=== PATIENT | male | born 1930 | race Caucasian/White ===

== ENCOUNTER 2018-02-13 11:42 | Inpatient (IN) ==
[2018-02-14] MEDS ORDERED: SODIUM CHLORIDE 0.9% 1,000 ML IV SCH (11:00)
[2018-02-17 14:19] LABS: Basophils % 0.6 % (0.0-0.8); Eosinophils # 0.3 10*3/uL (0.0-0.87); Hematocrit 32.9 VOL% (42.0-52.0); Hemoglobin 10.8 GM/DL (14.0-18.0); Immature Granulocytes % 0.2 %; Immature Granulocytes Absolute 0.01 #; Lymphocytes # 0.9 10*3/uL (1.4-4.0); Mean Corpuscular HGB Conc 32.8 GM/DL (32-36); Mean Corpuscular Hemoglobin 31 PG (27-34); Mean Corpuscular Volume 93.2 FL (87-102); Mean Platelet Volume 10.2 FL (9.6-12.0); Monocytes # 0.6 10*3/uL (0.11-0.8); Monocytes % 13.6 % (1.7-12.7); Neutrophils # 2.8 10*3/uL (1.4-7.4); Neutrophils % 59.6 % (38.7-73.9); Platelet Count 174 T/CUMM (130-400); Red Blood Count 3.53 MC/CUMM (3.8-5.5); White Blood Count 4.6 T/CUMM (4-12)
[2018-02-17 14:48] LABS: Albumin 3.7 G/DL (3.4-5.0); Bilirubin,Total 0.5 MG/DL (0.2-1.0); Calcium 8.7 MG/DL (8.5-10.1); Potassium 4.8 MMOL/L (3.5-5.1); Total Protein 7.2 G/DL (6.4-8.3)
[2018-02-17] MEDS: CHLORHEXIDINE 4% SOLN 118 ML BOTTLE TOP SCH ×2 (17:58→20:22)
[2018-02-17] MEDS: CHLORHEXIDINE 0.12% ORAL RINSE 60 ML BOTTLE SWISH/SPIT SCH (20:22)
[2018-02-18] MEDS ORDERED: FAMOTIDINE 20 MG TABLET PO ONE (05:21)
[2018-02-18] MEDS ORDERED: DIAZEPAM 5 MG TABLET PO ONE (05:21)
[2018-02-18] MEDS ORDERED: PAPAVERINE 60 MG/2 ML VIAL ONE (05:22)
[2018-02-18] MEDS ORDERED: TISSUE ADHESIVE 1 EACH APPLICATOR TOP ONE (05:22)
[2018-02-18] MEDS ORDERED: VANCOMYCIN 1,000 MG VIAL ONE (05:23)
[2018-02-18] MEDS ORDERED: CEFUROXIME INJ 1,500 MG in SYRINGE 1 EACH IV ONE (06:00)
[2018-02-18] MEDS ORDERED: CALCIUM CHLORIDE 1,000 MG/10 ML VIAL IV ONE (06:04)
[2018-02-18] MEDS ORDERED: ALBUTEROL/IPRATROPIUM 3 ML NEB RESP TX ONE (06:49)
[2018-02-18] MEDS ORDERED: PHENYLEPHRINE DRIP 0 MG/0 ML PREMIX IV ONE (07:36)
[2018-02-18] MEDS ORDERED: NITROPRUSSIDE 50 MG/2 ML VIAL ONE (07:36)
[2018-02-18] MEDS ORDERED: CALCIUM CHLORIDE 1,000 MG/10 ML SYRINGE IV ONE (07:37)
[2018-02-18] MEDS ORDERED: POTASSIUM CHLORIDE RIDER 100 ML IV ONE (07:37)
[2018-02-18] MEDS ORDERED: EPINEPHrine 1 MG/10 ML SYRINGE ONE (07:38)
[2018-02-18] MEDS ORDERED: ALBUMIN 5% 12.5 GM/250 ML VIAL IV ONE (07:38)
[2018-02-18] MEDS ORDERED: SODIUM BICARBONATE 50 MEQ/50 ML SYRINGE IV ONE ×3 (07:38→14:10)
[2018-02-18 07:55] LABS: ABG Base Excess -4.9 MMOL/L (-2.5-2.5); ABG HCO3 20.4 MMOL/L (20-26); ABG Oxygen Saturation 99.7 % (95-100); ABG PCO2 36.9 MM HG (35-48); ABG PH 7.346 (7.35-7.45); ABG TCO2 18.4 MMOL/L (23-27); Glucose Heart Surgery 91 MG/DL (74-106); Hemoglobin Heart Surgery 10.4 G/DL (14.0-18.0); Ionized Calcium Arterial 1.14 MMOL/L (1.21-1.46); PCO2 Patient Temp Arterial 36.9 MMHG; PH Patient Temp Arterial 7.346; Patient Temperature 37 CELCIUS; Sodium Heart/CVR 139 MMOL/L (135-145)
[2018-02-18] MEDS ORDERED: PHENYLEPHRINE DRIP 20 MG/250 ML PREMIX IV ONE (08:58)
[2018-02-18] MEDS ORDERED: HEPARIN/NACL 0.9% 2 UNITS/ML 500 ML IV ONE (08:58)
[2018-02-18] MEDS ORDERED: MIDAZOLAM 10 MG/2 ML VIAL ONE (08:59)
[2018-02-18] MEDS ORDERED: VECURONIUM 10 MG VIAL IV ONE (08:59)
[2018-02-18] MEDS ORDERED: AMINOCAPROIC ACID 5,000 MG/20 ML VIAL IV ONE (08:59)
[2018-02-18] MEDS ORDERED: ETOMIDATE 40 MG/20 ML VIAL IV ONE (08:59)
[2018-02-18] MEDS ORDERED: NITROGLYCERIN DRIP 50 MG/250 ML BOTTLE IV ONE (08:59)
[2018-02-18] MEDS ORDERED: SODIUM CHLORIDE 0.9% 250 ML IV ONE (08:59)
[2018-02-18] MEDS ORDERED: LACTATED RINGERS 1,000 ML IV ONE (08:59)
[2018-02-18] MEDS ORDERED: SODIUM CHLORIDE 0.9% 1,000 ML IV ONE (08:59)
[2018-02-18] MEDS ORDERED: SODIUM CHLORIDE 0.9% 100 ML IV ONE (08:59)
[2018-02-18 09:08] LABS: Hematocrit Heart Surgery 21.8 PERCENT (42-52); PCO2 Patient Temp Venous 34.5 MM HG; PH Patient Temp Venous 7.411; PO2 Patient Temp Venous 37.5 MM HG; Potassium Heart/CVR 4.9 MMOL/L (3.5-5.1); VBG Base Excess -2.3 MEQ/L (0-4); VBG HCO3 22.3 MEQ/L (24-28); VBG Oxygen Saturation 76.1 %; VBG PCO2 36.2 MMHG (41-51); VBG PH 7.396; VBG PO2 40.2 MMHG (17-40)
[2018-02-18 09:37] LABS: ABG Base Excess -4.4 MMOL/L (-2.5-2.5); ABG HCO3 20.7 MMOL/L (20-26); ABG Oxygen Saturation 99.9 % (95-100); ABG PCO2 40.3 MM HG (35-48); ABG PH 7.328 (7.35-7.45); Glucose Heart Surgery 205 MG/DL (74-106); Hematocrit Heart Surgery 23.2 PERCENT (42-52); Hemoglobin Heart Surgery 7.4 G/DL (14.0-18.0); Ionized Calcium Arterial 1.25 MMOL/L (1.21-1.46); PCO2 Patient Temp Arterial 40.3 MMHG; PH Patient Temp Arterial 7.328; Patient Temperature 37 CELCIUS; Potassium Heart/CVR 4.5 MMOL/L (3.5-5.1); Sodium Heart/CVR 131 MMOL/L (135-145)
[2018-02-18] MEDS ORDERED: DEXTROSE 5% KCL 20 MEQ 40 MEQ/2,000 ML BAG IV ONE (09:40)
[2018-02-18] MEDS ORDERED: HEPARIN 10,000 UNIT/10 ML VIAL ONE (09:40)
[2018-02-18] MEDS ORDERED: methylPREDNISolone SOD SUC 1,000 MG/8 ML VIAL ONE (09:40)
[2018-02-18] MEDS ORDERED: MANNITOL 12.5 GM/50 ML VIAL IV ONE (09:40)
[2018-02-18] MEDS ORDERED: MAGNESIUM SULFATE 10 GM/20 ML VIAL IV ONE (09:40)
[2018-02-18] MEDS ORDERED: ALBUMIN 25% 25 GM/100 ML VIAL IV ONE (09:40)
[2018-02-18] MEDS ORDERED: PROTAMINE SULFATE 250 MG/25 ML VIAL IV ONE (09:40)
[2018-02-18] MEDS ORDERED: PROTAMINE SULFATE 50 MG/5 ML VIAL IV ONE (09:41)
[2018-02-18] MEDS ORDERED: FUROSEMIDE 20 MG/2 ML VIAL ONE (09:41)
[2018-02-18] MEDS ORDERED: CHLORHEXIDINE 4% SOLN 118 ML BOTTLE TOP PRN (10:26)
[2018-02-18] MEDS ORDERED: ACETAMINOPHEN 650 MG SUPP RECTAL PRN (10:26)
[2018-02-18] MEDS ORDERED: SODIUM CHLORIDE 0.9% 250 ML IV PRN (10:26)
[2018-02-18] MEDS ORDERED: CALCIUM CHLORIDE 1,000 MG/10 ML SYRINGE IV PRN (10:26)
[2018-02-18] MEDS ORDERED: MIDAZOLAM 2 MG/2 ML VIAL IV PRN (10:26)
[2018-02-18] MEDS ORDERED: ALBUMIN 5% 12.5 GM in PREMIX 1 EACH IV PRN (10:26)
[2018-02-18] MEDS ORDERED: INSULIN REGULAR 100 UNIT/ML IV PRN (10:26)
[2018-02-18] MEDS ORDERED: ONDANSETRON 4 MG/2 ML VIAL IV PRN (10:26)
[2018-02-18] MEDS ORDERED: DEXTROSE 50% 25 GM/50 ML VIAL IV PRN ×2 (10:26)
[2018-02-18] MEDS ORDERED: SODIUM CHLORIDE 0.45% 1,000 ML IV SCH ×2 (10:30)
[2018-02-18] MEDS ORDERED: METOPROLOL TARTRATE 5 MG/5 ML VIAL IV ONE ×2 (10:33→21:30)
[2018-02-18] MEDS ORDERED: SEVOFLURANE 1 UNIT/15 MINUTE INH ONE (10:33)
[2018-02-18 10:58] LABS: ABG Base Excess -5.1 MMOL/L (-2.5-2.5); ABG HCO3 20.2 MMOL/L (20-26); ABG Oxygen Saturation 95.8 % (95-100); ABG PCO2 49.3 MM HG (35-48); ABG PO2 88.9 MM HG (80-95); ABG TCO2 20.6 MMOL/L (23-27); Glucose Heart Surgery 161 MG/DL (74-106); Hematocrit Heart Surgery 28.7 PERCENT (42-52); Hemoglobin Heart Surgery 9.2 G/DL (14.0-18.0); Potassium Heart/CVR 4.4 MMOL/L (3.5-5.1)
[2018-02-18 11:01] LABS: Basophils % 0.4 % (0.0-0.8); Eosinophils # 0.2 10*3/uL (0.0-0.87); Hematocrit 27.3 VOL% (42.0-52.0); Immature Granulocytes % 0.6 %; Immature Granulocytes Absolute 0.03 #; Lymphocytes # 0.9 10*3/uL (1.4-4.0); Lymphocytes % 18.8 % (21.2-54.2); Mean Corpuscular Hemoglobin 31 PG (27-34); Mean Corpuscular Volume 94.1 FL (87-102); Mean Platelet Volume 10.6 FL (9.6-12.0); Monocytes # 0.3 10*3/uL (0.11-0.8); Monocytes % 5.4 % (1.7-12.7); Neutrophils # 3.6 10*3/uL (1.4-7.4); Neutrophils % 71.8 % (38.7-73.9); Platelet Count 134 T/CUMM (130-400); Red Cell Distribution Width 13.1 % (9.3-17.3)
[2018-02-18] MEDS: CHLORHEXIDINE 4% SOLN 118 ML BOTTLE TOP SCH (11:09)
[2018-02-18] MEDS: CHLORHEXIDINE 0.12% ORAL RINSE 60 ML BOTTLE SWISH/SPIT SCH ×2 (11:09→20:08)
[2018-02-18 11:13] LABS: INR 1.1; PT Patient Result 11.5 SECS; Partial Thromboplastin Time 31.9 SECS (0-40)
[2018-02-18 11:16] LABS: Potassium 4.4 MMOL/L (3.5-5.1)
[2018-02-18 11:21] LABS: Lactic Acid 0.5 MMOL/L (0.4-2.0)
[2018-02-18 12:09] LABS: ABG Base Excess -5.1 MMOL/L (-2.5-2.5); ABG HCO3 21.5 MMOL/L (20-26); ABG Oxygen Saturation 95.2 % (95-100); ABG PCO2 46.1 MM HG (35-48); ABG PH 7.286 (7.35-7.45); ABG PO2 90.2 MM HG (80-95); ABG TCO2 22.9 MMOL/L (23-27); Glucose Heart Surgery 134 MG/DL (74-106); Hemoglobin Heart Surgery 10.6 G/DL (14.0-18.0)
[2018-02-18] MEDS: POTASSIUM CHLORIDE RIDER 20 MEQ in PREMIX 1 EACH IV PRN ×2 (12:17→17:12)
[2018-02-18 12:58] LABS: Apearance,Urine CLEAR (Clear); Bilirubin,Urine Negative (Negative); Blood, Urine Small mg/dL (Negative); Glucose,Urine (UA) Negative (Negative); Ketones,Urine Negative (Negative); Nitrite,Urine Negative (Negative); Protein,Urine Negative; RBC,Urine <1 /HPF (0-4); Urine Color Straw (Yellow); Urine Specific Gravity 1.008 (1.001-1.035); Urine Urobilinogen < 2.0 EU/DL (0.2-1.0); WBC,Urine <1 /HPF (0-6)
[2018-02-18] MEDS ORDERED: ASPIRIN 325 MG TABLET PER TUBE ONE (13:06)
[2018-02-18 14:06] LABS: ABG Base Excess -5.9 MMOL/L (-2.5-2.5); ABG HCO3 19.6 MMOL/L (20-26); ABG Oxygen Saturation 97.5 % (95-100); ABG PCO2 39.3 MM HG (35-48); ABG PH 7.312 (7.35-7.45); ABG PO2 99.4 MM HG (80-95); ABG TCO2 18.3 MMOL/L (23-27)
[2018-02-18] MEDS: SODIUM BICARB INJ 50 MEQ in SODIUM CHLORIDE 0.45% 950 ML IV SCH ×2 (14:46→22:41)
[2018-02-18] MEDS: INSULIN REGULAR 100 UNIT/ML SUBCUT SCH ×3 (16:25→23:37)
[2018-02-18 16:41] LABS: ABG Base Excess -2.9 MMOL/L (-2.5-2.5); ABG HCO3 21.6 MMOL/L (20-26); ABG Oxygen Saturation 97.5 % (95-100); ABG PCO2 36.3 MM HG (35-48); ABG PH 7.392 (7.35-7.45); ABG PO2 107.2 MM HG (80-95); ABG TCO2 22.7 MMOL/L (23-27); Glucose Heart Surgery 179 MG/DL (74-106); Hemoglobin Heart Surgery 10.8 G/DL (14.0-18.0); Potassium Heart/CVR 4.3 MMOL/L (3.5-5.1)
[2018-02-18] MEDS: MORPHINE 4 MG/1 ML VIAL IV PRN ×2 (17:01→21:36)
[2018-02-18] MEDS: MORPHINE 10 MG/1 ML VIAL IV PRN ×2 (17:45→19:37)
[2018-02-18] MEDS: CEFUROXIME INJ 1,500 MG in SYRINGE 1 EACH IV SCH (17:46)
[2018-02-18] MEDS ORDERED: AMIODARONE INJ 150 MG in DEXTROSE 5% 100 ML IV ONE (18:17)
[2018-02-18] MEDS ORDERED: AMIODARONE 150 MG/3 ML VIAL ONE (18:18)
[2018-02-18] MEDS ORDERED: AMIODARONE INJ 450 MG in DEXTROSE 5% 241 ML IV SCH (18:30)
[2018-02-18] MEDS: MAGNESIUM SULF RIDER 2 GM in PREMIX 1 EACH IV PRN (19:36)
[2018-02-18] MEDS ORDERED: CHLORHEXIDINE 0.12% ORAL RINSE 60 ML BOTTLE SWISH/SPIT SCH (21:00)
[2018-02-18] MEDS: diphenhydrAMINE CAP 50 MG CAPSULE PO PRN (21:19)
[2018-02-18] MEDS ORDERED: KETOROLAC 15 MG/1 ML VIAL IV ONE (22:30)
[2018-02-19] MEDS ORDERED: AMIODARONE INJ 450 MG in DEXTROSE 5% 241 ML IV SCH (02:00)
[2018-02-19 04:12] LABS: Basophils % 0.1 % (0.0-0.8); Hematocrit 28.7 VOL% (42.0-52.0); Hemoglobin 9.4 GM/DL (14.0-18.0); Immature Granulocytes % 0.5 %; Immature Granulocytes Absolute 0.07 #; Lymphocytes # 0.5 10*3/uL (1.4-4.0); Lymphocytes % 3.9 % (21.2-54.2); Mean Corpuscular HGB Conc 32.8 GM/DL (32-36); Mean Corpuscular Hemoglobin 30 PG (27-34); Mean Corpuscular Volume 91.4 FL (87-102); Mean Platelet Volume 10.8 FL (9.6-12.0); Monocytes # 0.7 10*3/uL (0.11-0.8); Monocytes % 5.1 % (1.7-12.7); Neutrophils # 12.5 10*3/uL (1.4-7.4); Neutrophils % 90.4 % (38.7-73.9); Platelet Count 137 T/CUMM (130-400); Red Blood Count 3.14 MC/CUMM (3.8-5.5); Red Cell Distribution Width 13.2 % (9.3-17.3); White Blood Count 13.9 T/CUMM (4-12)
[2018-02-19] MEDS: INSULIN REGULAR 100 UNIT/ML SUBCUT SCH ×6 (04:12→20:42)
[2018-02-19 04:26] LABS: Calcium 8.3 MG/DL (8.5-10.1); Osmolality,Calculated 282.8 MOS/KG (273-304); Potassium 4.3 MMOL/L (3.5-5.1)
[2018-02-19 04:42] LABS: Band Neutrophils 1 % (0-10); Hypochromasia 1+; Lymphocytes 2 % (20-55); Microcytosis 1+; Segmented Neutrophils 94 % (50-85); Total Cells Counted 100
[2018-02-19 04:43] LABS: Acanthocytes Few; Ovalocytes Slight; Platelet Estimate Adequate
[2018-02-19] MEDS: MAGNESIUM SULF RIDER 2 GM in PREMIX 1 EACH IV PRN (05:29)
[2018-02-19] MEDS: CEFUROXIME INJ 1,500 MG in SYRINGE 1 EACH IV SCH ×2 (05:30→17:43)
[2018-02-19] MEDS: SODIUM BICARB INJ 50 MEQ in SODIUM CHLORIDE 0.45% 950 ML IV SCH (06:39)
[2018-02-19] MEDS ORDERED: SODIUM CHLORIDE 0.45% 1,000 ML IV SCH (07:30)
[2018-02-19] MEDS: PANTOPRAZOLE 40 MG VIAL IV SCH (08:36)
[2018-02-19] MEDS: ASPIRIN EC 325 MG TABLET PO SCH (08:37)
[2018-02-19] MEDS: CHLORHEXIDINE 0.12% ORAL RINSE 60 ML BOTTLE SWISH/SPIT SCH ×2 (08:37→22:26)
[2018-02-19] MEDS: FUROSEMIDE 40 MG TABLET PO SCH (08:37)
[2018-02-19] MEDS: METOPROLOL TARTRATE 25 MG TABLET PO SCH ×3 (08:37→20:43)
[2018-02-19] MEDS ORDERED: LACTATED RINGERS 500 ML IV ONE (12:23)
[2018-02-19] MEDS: MORPHINE 10 MG/1 ML VIAL IV PRN ×3 (13:45→22:37)
[2018-02-19] MEDS ORDERED: NON-FORMULARY MEDICATION (Esomeprazole Magnesium [Nexium] 20 MG) PO PRN (14:01)
[2018-02-19] MEDS: AMIODARONE 200 MG TABLET PO SCH (20:43)
[2018-02-19] MEDS: ATORVASTATIN 40 MG TABLET PO SCH (20:43)
[2018-02-19] MEDS: diphenhydrAMINE CAP 50 MG CAPSULE PO PRN (22:38)
[2018-02-20 06:06] LABS: Basophils % 0.1 % (0.0-0.8); Hematocrit 30.1 VOL% (42.0-52.0); Hemoglobin 9.8 GM/DL (14.0-18.0); Immature Granulocytes % 0.5 %; Immature Granulocytes Absolute 0.08 #; Lymphocytes # 0.8 10*3/uL (1.4-4.0); Lymphocytes % 4.8 % (21.2-54.2); Mean Corpuscular HGB Conc 32.6 GM/DL (32-36); Mean Corpuscular Hemoglobin 30 PG (27-34); Mean Corpuscular Volume 92.3 FL (87-102); Monocytes # 1.2 10*3/uL (0.11-0.8); Monocytes % 7.3 % (1.7-12.7); Neutrophils # 14.4 10*3/uL (1.4-7.4); Neutrophils % 87.3 % (38.7-73.9); Platelet Count 162 T/CUMM (130-400); Red Blood Count 3.26 MC/CUMM (3.8-5.5); Red Cell Distribution Width 13.5 % (9.3-17.3); White Blood Count 16.5 T/CUMM (4-12)
[2018-02-20 06:31] LABS: Calcium 8.4 MG/DL (8.5-10.1); Potassium 4.2 MMOL/L (3.5-5.1)
[2018-02-20 06:32] LABS: Lymphocytes 6 % (20-55); Platelet Estimate Normal; Segmented Neutrophils 86 % (50-85); Total Cells Counted 100
[2018-02-20 06:33] LABS: Hypochromasia 1+; Microcytosis 1+; Ovalocytes Slight
[2018-02-20] MEDS: FUROSEMIDE 40 MG TABLET PO SCH (08:36)
[2018-02-20] MEDS: FINASTERIDE 5 MG TABLET PO SCH (08:36)
[2018-02-20] MEDS: AMIODARONE 200 MG TABLET PO SCH ×2 (08:37→20:41)
[2018-02-20] MEDS: METOPROLOL TARTRATE 25 MG TABLET PO SCH ×2 (08:37→20:41)
[2018-02-20] MEDS: PANTOPRAZOLE 40 MG VIAL IV SCH (08:37)
[2018-02-20] MEDS: TAMSULOSIN 0.4 MG CAPSULE PO SCH (08:37)
[2018-02-20] MEDS: ASPIRIN EC 325 MG TABLET PO SCH (08:37)
[2018-02-20] MEDS: CETIRIZINE 10 MG TABLET PO SCH (08:37)
[2018-02-20] MEDS: CHLORHEXIDINE 0.12% ORAL RINSE 60 ML BOTTLE SWISH/SPIT SCH ×2 (08:37→20:41)
[2018-02-20] MEDS: INSULIN REGULAR 100 UNIT/ML SUBCUT SCH ×4 (08:47→20:41)
[2018-02-20] MEDS ORDERED: LEVOFLOXACIN 750 MG TABLET PO SCH (10:30)
[2018-02-20] MEDS ORDERED: DOXYCYCLINE HYCLATE 100 MG CAPSULE PO SCH (11:30)
[2018-02-20] MEDS: DOCUSATE SODIUM 100 MG CAPSULE PO SCH ×2 (11:31→20:41)
[2018-02-20] MEDS: BISACODYL 5 MG TABLET PO SCH (11:32)
[2018-02-20] MEDS: DOXYCYCLINE HYCLATE 100 MG CAPSULE PO SCH ×2 (11:32→20:41)
[2018-02-20] MEDS ORDERED: LIDOCAINE 1%/EPI INJ 20 ML VIAL MISC INJ ONE (17:45)
[2018-02-20] MEDS ORDERED: HYDROmorphone 2 MG/1 ML VIAL IV ONE (17:50)
[2018-02-20] MEDS: ATORVASTATIN 40 MG TABLET PO SCH (20:41)
[2018-02-20] MEDS: LOSARTAN 25 MG TABLET PO SCH (20:41)
[2018-02-21 03:32] LABS: Eosinophils % 0.1 % (0.00-10.9); Hematocrit 29.6 VOL% (42.0-52.0); Hemoglobin 9.4 GM/DL (14.0-18.0); Immature Granulocytes % 0.6 %; Immature Granulocytes Absolute 0.07 #; Lymphocytes % 8.2 % (21.2-54.2); Mean Corpuscular HGB Conc 31.8 GM/DL (32-36); Mean Corpuscular Hemoglobin 29 PG (27-34); Mean Corpuscular Volume 92.5 FL (87-102); Mean Platelet Volume 11.3 FL (9.6-12.0); Monocytes # 0.9 10*3/uL (0.11-0.8); Neutrophils # 10.4 10*3/uL (1.4-7.4); Neutrophils % 84.1 % (38.7-73.9); Platelet Count 153 T/CUMM (130-400); Red Cell Distribution Width 13.3 % (9.3-17.3); White Blood Count 12.4 T/CUMM (4-12)
[2018-02-21] MEDS: diphenhydrAMINE CAP 50 MG CAPSULE PO PRN (03:32)
[2018-02-21 03:50] LABS: Calcium 8.2 MG/DL (8.5-10.1); Potassium 3.9 MMOL/L (3.5-5.1)
[2018-02-21] MEDS: HALOPERIDOL 5 MG/ML AMP IM SCH ×2 (04:03→20:26)
[2018-02-21] MEDS: POTASSIUM CHLORIDE RIDER 10 MEQ in PREMIX 1 EACH IV PRN ×4 (04:33→16:05)
[2018-02-21] MEDS ORDERED: FUROSEMIDE 40 MG/4 ML VIAL IV ONE (08:01)
[2018-02-21] MEDS: INSULIN REGULAR 100 UNIT/ML SUBCUT SCH ×4 (08:32→20:34)
[2018-02-21] MEDS: BISACODYL 5 MG TABLET PO SCH (08:33)
[2018-02-21] MEDS: METOPROLOL TARTRATE 25 MG TABLET PO SCH ×2 (08:33→20:26)
[2018-02-21] MEDS: AMIODARONE 200 MG TABLET PO SCH ×2 (08:33→20:26)
[2018-02-21] MEDS: CETIRIZINE 10 MG TABLET PO SCH (08:33)
[2018-02-21] MEDS: TAMSULOSIN 0.4 MG CAPSULE PO SCH (08:33)
[2018-02-21] MEDS: FINASTERIDE 5 MG TABLET PO SCH (08:33)
[2018-02-21] MEDS: DOCUSATE SODIUM 100 MG CAPSULE PO SCH ×2 (08:33→20:26)
[2018-02-21] MEDS: ASPIRIN EC 325 MG TABLET PO SCH (08:33)
[2018-02-21] MEDS: FUROSEMIDE 40 MG TABLET PO SCH (08:35)
[2018-02-21] MEDS: PANTOPRAZOLE 40 MG VIAL IV SCH (08:35)
[2018-02-21] MEDS: DOXYCYCLINE HYCLATE 100 MG CAPSULE PO SCH ×2 (08:42→20:26)
[2018-02-21] MEDS: LOSARTAN 25 MG TABLET PO SCH ×2 (08:43→20:26)
[2018-02-21] MEDS: CHLORHEXIDINE 0.12% ORAL RINSE 60 ML BOTTLE SWISH/SPIT SCH ×2 (09:25→22:03)
[2018-02-21] MEDS ORDERED: SIMETHICONE CHEW 125 MG TABLET PO PRN (10:21)
[2018-02-21] MEDS: MORPHINE 10 MG/1 ML VIAL IV PRN (10:55)
[2018-02-21] MEDS ORDERED: ALBUMIN 5% 25 GM in PREMIX 1 EACH IV ONE (12:30)
[2018-02-21] MEDS: ATORVASTATIN 40 MG TABLET PO SCH (20:26)
[2018-02-21] MEDS ORDERED: METOPROLOL TARTRATE 5 MG/5 ML VIAL IV ONE ×2 (21:44→22:00)
[2018-02-21] MEDS ORDERED: LACTATED RINGERS 500 ML IV ONE (23:19)
[2018-02-22 05:58] LABS: Basophils % 0.1 % (0.0-0.8); Eosinophils # 0.2 10*3/uL (0.0-0.87); Eosinophils % 2.3 % (0.00-10.9); Hematocrit 27.2 VOL% (42.0-52.0); Immature Granulocytes % 0.6 %; Immature Granulocytes Absolute 0.06 #; Mean Corpuscular HGB Conc 33.1 GM/DL (32-36); Mean Corpuscular Hemoglobin 31 PG (27-34); Mean Corpuscular Volume 92.2 FL (87-102); Mean Platelet Volume 11.3 FL (9.6-12.0); Monocytes # 0.6 10*3/uL (0.11-0.8); Monocytes % 5.9 % (1.7-12.7); Neutrophils # 8.4 10*3/uL (1.4-7.4); Neutrophils % 81.1 % (38.7-73.9); Platelet Count 146 T/CUMM (130-400); Red Blood Count 2.95 MC/CUMM (3.8-5.5); Red Cell Distribution Width 12.9 % (9.3-17.3); White Blood Count 10.3 T/CUMM (4-12)
[2018-02-22 06:29] LABS: Calcium 7.8 MG/DL (8.5-10.1); Osmolality,Calculated 281.4 MOS/KG (273-304); Potassium 3.4 MMOL/L (3.5-5.1)
[2018-02-22] MEDS: INSULIN REGULAR 100 UNIT/ML SUBCUT SCH ×4 (08:07→21:10)
[2018-02-22] MEDS: MAGNESIUM SULF RIDER 4 GM in PREMIX 1 EACH IV PRN (08:35)
[2018-02-22] MEDS: PANTOPRAZOLE 40 MG VIAL IV SCH (08:35)
[2018-02-22] MEDS ORDERED: LACTATED RINGERS 500 ML IV ONE ×2 (10:20→11:51)
[2018-02-22] MEDS ORDERED: HYDROmorphone 2 MG/1 ML VIAL IV ONE (10:20)
[2018-02-22] MEDS ORDERED: HYDROmorphone 2 MG/1 ML VIAL ONE (10:23)
[2018-02-22] MEDS ORDERED: LIDOCAINE 1%/EPI INJ 20 ML VIAL ONE (10:34)
[2018-02-22] MEDS: ASPIRIN EC 325 MG TABLET PO SCH (12:34)
[2018-02-22] MEDS: CETIRIZINE 10 MG TABLET PO SCH (12:35)
[2018-02-22] MEDS: BISACODYL 5 MG TABLET PO SCH (12:35)
[2018-02-22] MEDS: TAMSULOSIN 0.4 MG CAPSULE PO SCH (12:35)
[2018-02-22] MEDS: DOCUSATE SODIUM 100 MG CAPSULE PO SCH ×2 (12:35→21:10)
[2018-02-22] MEDS: DOXYCYCLINE HYCLATE 100 MG CAPSULE PO SCH ×2 (12:35→21:10)
[2018-02-22] MEDS: FINASTERIDE 5 MG TABLET PO SCH (12:35)
[2018-02-22] MEDS: FUROSEMIDE 40 MG TABLET PO SCH (12:35)
[2018-02-22] MEDS: AMIODARONE 200 MG TABLET PO SCH ×2 (12:35→21:10)
[2018-02-22] MEDS: METOPROLOL TARTRATE 25 MG TABLET PO SCH ×2 (12:39→21:11)
[2018-02-22] MEDS: CHLORHEXIDINE 0.12% ORAL RINSE 60 ML BOTTLE SWISH/SPIT SCH ×2 (13:18→21:11)
[2018-02-22] MEDS: POTASSIUM CHLORIDE RIDER 20 MEQ in PREMIX 1 EACH IV PRN ×2 (14:00→16:00)
[2018-02-22] MEDS: MORPHINE 10 MG/1 ML VIAL IV PRN (16:52)
[2018-02-22] MEDS: ATORVASTATIN 40 MG TABLET PO SCH (21:10)
[2018-02-22] MEDS: HALOPERIDOL 5 MG/ML AMP IM SCH (21:10)
[2018-02-23 06:13] LABS: Basophils % 0.1 % (0.0-0.8); Eosinophils # 0.4 10*3/uL (0.0-0.87); Eosinophils % 4.4 % (0.00-10.9); Hematocrit 27.6 VOL% (42.0-52.0); Hemoglobin 8.9 GM/DL (14.0-18.0); Immature Granulocytes % 0.3 %; Immature Granulocytes Absolute 0.03 #; Lymphocytes # 0.8 10*3/uL (1.4-4.0); Mean Corpuscular HGB Conc 32.2 GM/DL (32-36); Mean Corpuscular Hemoglobin 29 PG (27-34); Mean Corpuscular Volume 90.5 FL (87-102); Mean Platelet Volume 11.5 FL (9.6-12.0); Monocytes # 0.6 10*3/uL (0.11-0.8); Neutrophils % 81.2 % (38.7-73.9); Platelet Count 151 T/CUMM (130-400); Red Blood Count 3.05 MC/CUMM (3.8-5.5); Red Cell Distribution Width 12.8 % (9.3-17.3); White Blood Count 9.9 T/CUMM (4-12)
[2018-02-23 06:31] LABS: Calcium 7.5 MG/DL (8.5-10.1); Osmolality,Calculated 279.7 MOS/KG (273-304); Potassium 3.6 MMOL/L (3.5-5.1)
[2018-02-23] MEDS: INSULIN REGULAR 100 UNIT/ML SUBCUT SCH ×4 (08:20→22:18)
[2018-02-23] MEDS: DOCUSATE SODIUM 100 MG CAPSULE PO SCH ×2 (08:34→20:56)
[2018-02-23] MEDS: AMIODARONE 200 MG TABLET PO SCH ×2 (08:34→20:56)
[2018-02-23] MEDS: ASPIRIN EC 325 MG TABLET PO SCH (08:34)
[2018-02-23] MEDS: CETIRIZINE 10 MG TABLET PO SCH (08:34)
[2018-02-23] MEDS: FUROSEMIDE 40 MG TABLET PO SCH (08:34)
[2018-02-23] MEDS: BISACODYL 5 MG TABLET PO SCH (08:34)
[2018-02-23] MEDS: FINASTERIDE 5 MG TABLET PO SCH (08:34)
[2018-02-23] MEDS: DOXYCYCLINE HYCLATE 100 MG CAPSULE PO SCH ×2 (08:34→20:56)
[2018-02-23] MEDS: TAMSULOSIN 0.4 MG CAPSULE PO SCH (08:34)
[2018-02-23] MEDS: PANTOPRAZOLE 40 MG VIAL IV SCH (08:34)
[2018-02-23] MEDS: CHLORHEXIDINE 0.12% ORAL RINSE 60 ML BOTTLE SWISH/SPIT SCH ×2 (08:35→20:57)
[2018-02-23] MEDS: METOPROLOL TARTRATE 25 MG TABLET PO SCH ×2 (08:35→20:56)
[2018-02-23] MEDS ORDERED: LACTATED RINGERS 500 ML IV ONE (12:21)
[2018-02-23] MEDS ORDERED: SODIUM PHOSPHATE ENEMA 133 ML BOTTLE RECTAL ONE (12:23)
[2018-02-23] MEDS ORDERED: SODIUM CHLORIDE 0.9% 1,000 ML IV PRN (12:24)
[2018-02-23] MEDS: LACTATED RINGERS 1,000 ML IV SCH (12:48)
[2018-02-23 13:03] LABS: Amorphous Crystals,Urine Occasional /HPF (Few); Apearance,Urine CLOUDY (Clear); Bacteria,Urine Few /HPF (Few); Bilirubin,Urine Negative (Negative); Blood, Urine Large mg/dL (Negative); Glucose,Urine (UA) Negative (Negative); Hyaline Casts,Urine 7 /LPF (0-3); Ketones,Urine Negative (Negative); Nitrite,Urine Negative (Negative); Protein,Urine Negative; RBC,Urine 86 /HPF (0-4); Urine Color Yellow (Yellow); Urine Urobilinogen < 2.0 EU/DL (0.2-1.0); WBC,Urine 4 /HPF (0-6)
[2018-02-23 19:20] LABS: Hematocrit 28.5 VOL% (42.0-52.0); Hemoglobin 9.6 GM/DL (14.0-18.0)
[2018-02-23] MEDS: ATORVASTATIN 40 MG TABLET PO SCH (20:56)
[2018-02-23] MEDS: HALOPERIDOL 5 MG/ML AMP IM SCH (20:57)
[2018-02-24 05:56] LABS: Basophils % 0.2 % (0.0-0.8); Eosinophils # 0.4 10*3/uL (0.0-0.87); Hematocrit 31.3 VOL% (42.0-52.0); Hemoglobin 10.7 GM/DL (14.0-18.0); Immature Granulocytes % 0.6 %; Immature Granulocytes Absolute 0.06 #; Lymphocytes # 0.7 10*3/uL (1.4-4.0); Lymphocytes % 6.7 % (21.2-54.2); Mean Corpuscular HGB Conc 34.2 GM/DL (32-36); Mean Corpuscular Hemoglobin 30 PG (27-34); Mean Corpuscular Volume 87.7 FL (87-102); Mean Platelet Volume 12.3 FL (9.6-12.0); Monocytes # 0.7 10*3/uL (0.11-0.8); Monocytes % 7.1 % (1.7-12.7); Neutrophils # 8.2 10*3/uL (1.4-7.4); Neutrophils % 81.4 % (38.7-73.9); Platelet Count 126 T/CUMM (130-400); Red Blood Count 3.57 MC/CUMM (3.8-5.5); Red Cell Distribution Width 13.4 % (9.3-17.3); White Blood Count 10.1 T/CUMM (4-12)
[2018-02-24] MEDS: METOPROLOL TARTRATE 25 MG TABLET PO SCH ×3 (07:12→20:47)
[2018-02-24] MEDS: INSULIN REGULAR 100 UNIT/ML SUBCUT SCH ×4 (07:25→20:53)
[2018-02-24] MEDS: LACTATED RINGERS 1,000 ML IV SCH (08:33)
[2018-02-24] MEDS: FINASTERIDE 5 MG TABLET PO SCH (08:34)
[2018-02-24] MEDS: AMIODARONE 200 MG TABLET PO SCH ×2 (08:34→20:45)
[2018-02-24] MEDS: ASPIRIN EC 325 MG TABLET PO SCH (08:34)
[2018-02-24] MEDS: DOXYCYCLINE HYCLATE 100 MG CAPSULE PO SCH ×2 (08:34→20:45)
[2018-02-24] MEDS: TAMSULOSIN 0.4 MG CAPSULE PO SCH (08:34)
[2018-02-24] MEDS: BISACODYL 5 MG TABLET PO SCH (08:34)
[2018-02-24] MEDS: DOCUSATE SODIUM 100 MG CAPSULE PO SCH ×2 (08:34→20:51)
[2018-02-24] MEDS: CETIRIZINE 10 MG TABLET PO SCH (08:34)
[2018-02-24] MEDS: PANTOPRAZOLE 40 MG VIAL IV SCH (08:35)
[2018-02-24 08:36] LABS: Calcium 7.5 MG/DL (8.5-10.1); Osmolality,Calculated 284.2 MOS/KG (273-304); Potassium 3.1 MMOL/L (3.5-5.1)
[2018-02-24] MEDS: CHLORHEXIDINE 0.12% ORAL RINSE 60 ML BOTTLE SWISH/SPIT SCH ×2 (08:40→20:47)
[2018-02-24] MEDS: FUROSEMIDE 40 MG TABLET PO SCH (08:42)
[2018-02-24] MEDS: POTASSIUM CHLORIDE RIDER 20 MEQ in PREMIX 1 EACH IV PRN (09:57)
[2018-02-24] MEDS: ATORVASTATIN 40 MG TABLET PO SCH (20:45)
[2018-02-24] MEDS: HALOPERIDOL 5 MG/ML AMP IM SCH (20:45)
[2018-02-25] MEDS: POTASSIUM CHLORIDE RIDER 20 MEQ in PREMIX 1 EACH IV PRN ×2 (01:16→02:48)
[2018-02-25 04:43] LABS: Basophils % 0.1 % (0.0-0.8); Eosinophils # 0.5 10*3/uL (0.0-0.87); Hematocrit 29.8 VOL% (42.0-52.0); Hemoglobin 9.8 GM/DL (14.0-18.0); Immature Granulocytes % 0.6 %; Immature Granulocytes Absolute 0.05 #; Lymphocytes % 11.5 % (21.2-54.2); Mean Corpuscular HGB Conc 32.9 GM/DL (32-36); Mean Corpuscular Hemoglobin 29 PG (27-34); Mean Corpuscular Volume 88.7 FL (87-102); Mean Platelet Volume 11.4 FL (9.6-12.0); Monocytes # 0.7 10*3/uL (0.11-0.8); Monocytes % 8.1 % (1.7-12.7); Neutrophils # 6.2 10*3/uL (1.4-7.4); Neutrophils % 73.7 % (38.7-73.9); Platelet Count 141 T/CUMM (130-400); Red Blood Count 3.36 MC/CUMM (3.8-5.5); Red Cell Distribution Width 13.5 % (9.3-17.3); White Blood Count 8.4 T/CUMM (4-12)
[2018-02-25 05:10] LABS: Calcium 7.4 MG/DL (8.5-10.1); Potassium 3.8 MMOL/L (3.5-5.1)
[2018-02-25] MEDS: INSULIN REGULAR 100 UNIT/ML SUBCUT SCH ×3 (08:39→17:33)
[2018-02-25] MEDS: DOCUSATE SODIUM 100 MG CAPSULE PO SCH ×2 (10:04→21:36)
[2018-02-25] MEDS: ASPIRIN EC 325 MG TABLET PO SCH (10:04)
[2018-02-25] MEDS: AMIODARONE 200 MG TABLET PO SCH ×2 (10:04→21:36)
[2018-02-25] MEDS: TAMSULOSIN 0.4 MG CAPSULE PO SCH (10:05)
[2018-02-25] MEDS: FUROSEMIDE 40 MG TABLET PO SCH (10:05)
[2018-02-25] MEDS: BISACODYL 5 MG TABLET PO SCH (10:05)
[2018-02-25] MEDS: CHLORHEXIDINE 0.12% ORAL RINSE 60 ML BOTTLE SWISH/SPIT SCH ×2 (10:06→21:35)
[2018-02-25] MEDS: METOPROLOL TARTRATE 25 MG TABLET PO SCH ×2 (10:06→21:36)
[2018-02-25] MEDS: FINASTERIDE 5 MG TABLET PO SCH (10:07)
[2018-02-25] MEDS: CETIRIZINE 10 MG TABLET PO SCH (10:08)
[2018-02-25] MEDS: DOXYCYCLINE HYCLATE 100 MG CAPSULE PO SCH ×2 (10:08→21:36)
[2018-02-25] MEDS: PANTOPRAZOLE 40 MG VIAL IV SCH (10:13)
[2018-02-25] MEDS: HALOPERIDOL 5 MG/ML AMP IM SCH (21:36)
[2018-02-25] MEDS: ATORVASTATIN 40 MG TABLET PO SCH (21:37)
[2018-02-26] MEDS: INSULIN REGULAR 100 UNIT/ML SUBCUT SCH ×5 (00:22→21:12)
[2018-02-26] MEDS: diphenhydrAMINE CAP 50 MG CAPSULE PO PRN ×2 (01:36→21:12)
[2018-02-26 04:59] LABS: Basophils % 0.2 % (0.0-0.8); Eosinophils # 0.3 10*3/uL (0.0-0.87); Eosinophils % 3.5 % (0.00-10.9); Hematocrit 31.7 VOL% (42.0-52.0); Hemoglobin 10.4 GM/DL (14.0-18.0); Immature Granulocytes % 0.7 %; Immature Granulocytes Absolute 0.06 #; Lymphocytes % 10.7 % (21.2-54.2); Mean Corpuscular HGB Conc 32.8 GM/DL (32-36); Mean Corpuscular Hemoglobin 30 PG (27-34); Mean Corpuscular Volume 90.3 FL (87-102); Mean Platelet Volume 10.8 FL (9.6-12.0); Monocytes # 0.6 10*3/uL (0.11-0.8); Neutrophils # 7.2 10*3/uL (1.4-7.4); Neutrophils % 77.9 % (38.7-73.9); Platelet Count 241 T/CUMM (130-400); Red Blood Count 3.51 MC/CUMM (3.8-5.5); Red Cell Distribution Width 13.5 % (9.3-17.3); White Blood Count 9.2 T/CUMM (4-12)
[2018-02-26 05:27] LABS: Calcium 7.9 MG/DL (8.5-10.1); Osmolality,Calculated 286.8 MOS/KG (273-304); Potassium 3.6 MMOL/L (3.5-5.1)
[2018-02-26] MEDS: FUROSEMIDE 40 MG TABLET PO SCH (08:46)
[2018-02-26] MEDS: TAMSULOSIN 0.4 MG CAPSULE PO SCH (08:47)
[2018-02-26] MEDS: FINASTERIDE 5 MG TABLET PO SCH (08:47)
[2018-02-26] MEDS: METOPROLOL TARTRATE 25 MG TABLET PO SCH ×2 (08:47→21:12)
[2018-02-26] MEDS: DOCUSATE SODIUM 100 MG CAPSULE PO SCH ×2 (08:47→21:12)
[2018-02-26] MEDS: BISACODYL 5 MG TABLET PO SCH (08:47)
[2018-02-26] MEDS: CETIRIZINE 10 MG TABLET PO SCH (08:47)
[2018-02-26] MEDS: MAGNESIUM SULF RIDER 4 GM in PREMIX 1 EACH IV PRN (08:48)
[2018-02-26] MEDS: AMIODARONE 200 MG TABLET PO SCH ×2 (08:48→21:12)
[2018-02-26] MEDS: ASPIRIN EC 325 MG TABLET PO SCH (08:48)
[2018-02-26] MEDS: PANTOPRAZOLE 40 MG VIAL IV SCH (08:48)
[2018-02-26] MEDS: DOXYCYCLINE HYCLATE 100 MG CAPSULE PO SCH ×2 (08:50→21:12)
[2018-02-26] MEDS: CHLORHEXIDINE 0.12% ORAL RINSE 60 ML BOTTLE SWISH/SPIT SCH ×2 (08:51→21:13)
[2018-02-26] MEDS: ATORVASTATIN 40 MG TABLET PO SCH (21:12)
[2018-02-26] MEDS: HALOPERIDOL 5 MG/ML AMP IM SCH (21:13)
[2018-02-27] MEDS: BISACODYL 5 MG TABLET PO SCH (10:05)
[2018-02-27] MEDS: DOCUSATE SODIUM 100 MG CAPSULE PO SCH ×2 (10:05→21:03)
[2018-02-27] MEDS: FINASTERIDE 5 MG TABLET PO SCH (10:05)
[2018-02-27] MEDS: CETIRIZINE 10 MG TABLET PO SCH (10:05)
[2018-02-27] MEDS: ASPIRIN EC 325 MG TABLET PO SCH (10:05)
[2018-02-27] MEDS: DOXYCYCLINE HYCLATE 100 MG CAPSULE PO SCH ×2 (10:05→20:59)
[2018-02-27] MEDS: FUROSEMIDE 40 MG TABLET PO SCH (10:06)
[2018-02-27] MEDS: INSULIN REGULAR 100 UNIT/ML SUBCUT SCH ×3 (10:06→16:41)
[2018-02-27] MEDS: PANTOPRAZOLE 40 MG VIAL IV SCH (10:06)
[2018-02-27] MEDS: METOPROLOL TARTRATE 25 MG TABLET PO SCH ×2 (10:06→21:03)
[2018-02-27] MEDS: AMIODARONE 200 MG TABLET PO SCH ×2 (10:06→21:00)
[2018-02-27] MEDS: TAMSULOSIN 0.4 MG CAPSULE PO SCH (10:06)
[2018-02-27] MEDS: CHLORHEXIDINE 0.12% ORAL RINSE 60 ML BOTTLE SWISH/SPIT SCH ×2 (10:06→21:02)
[2018-02-27] MEDS: HALOPERIDOL 5 MG/ML AMP IM SCH (20:59)
[2018-02-27] MEDS: ATORVASTATIN 40 MG TABLET PO SCH (21:00)
[2018-02-28] MEDS: CETIRIZINE 10 MG TABLET PO SCH (09:14)
[2018-02-28] MEDS: FINASTERIDE 5 MG TABLET PO SCH (09:14)
[2018-02-28] MEDS: FUROSEMIDE 40 MG TABLET PO SCH (09:14)
[2018-02-28] MEDS: AMIODARONE 200 MG TABLET PO SCH ×2 (09:14→21:33)
[2018-02-28] MEDS: DOCUSATE SODIUM 100 MG CAPSULE PO SCH ×2 (09:14→21:33)
[2018-02-28] MEDS: BISACODYL 5 MG TABLET PO SCH (09:14)
[2018-02-28] MEDS: ASPIRIN EC 325 MG TABLET PO SCH (09:15)
[2018-02-28] MEDS: METOPROLOL TARTRATE 25 MG TABLET PO SCH ×2 (09:15→21:33)
[2018-02-28] MEDS: TAMSULOSIN 0.4 MG CAPSULE PO SCH (09:15)
[2018-02-28] MEDS: DOXYCYCLINE HYCLATE 100 MG CAPSULE PO SCH ×2 (09:17→21:33)
[2018-02-28] MEDS: PANTOPRAZOLE 40 MG VIAL IV SCH (09:23)
[2018-02-28] MEDS: CHLORHEXIDINE 0.12% ORAL RINSE 60 ML BOTTLE SWISH/SPIT SCH ×2 (09:23→21:33)
[2018-02-28] MEDS: ATORVASTATIN 40 MG TABLET PO SCH (21:33)
[2018-02-28] MEDS: HALOPERIDOL 5 MG/ML AMP IM SCH (21:33)
[2018-03-01 02:37] LABS: Basophils % 0.3 % (0.0-0.8); Eosinophils # 0.4 10*3/uL (0.0-0.87); Eosinophils % 4.1 % (0.00-10.9); Hematocrit 29.8 VOL% (42.0-52.0); Hemoglobin 9.5 GM/DL (14.0-18.0); Immature Granulocytes % 0.5 %; Immature Granulocytes Absolute 0.05 #; Lymphocytes # 1.3 10*3/uL (1.4-4.0); Lymphocytes % 11.6 % (21.2-54.2); Mean Corpuscular HGB Conc 31.9 GM/DL (32-36); Mean Corpuscular Hemoglobin 29 PG (27-34); Mean Platelet Volume 10.5 FL (9.6-12.0); Monocytes # 0.9 10*3/uL (0.11-0.8); Monocytes % 7.9 % (1.7-12.7); Neutrophils # 8.2 10*3/uL (1.4-7.4); Neutrophils % 75.6 % (38.7-73.9); Platelet Count 267 T/CUMM (130-400); Red Blood Count 3.31 MC/CUMM (3.8-5.5); Red Cell Distribution Width 13.6 % (9.3-17.3); White Blood Count 10.8 T/CUMM (4-12)
[2018-03-01 03:19] LABS: Calcium 8.1 MG/DL (8.5-10.1); Osmolality,Calculated 282.7 MOS/KG (273-304); Potassium 3.8 MMOL/L (3.5-5.1)
[2018-03-01] MEDS: MAGNESIUM SULF RIDER 4 GM in PREMIX 1 EACH IV PRN (04:53)
[2018-03-01] MEDS: CHLORHEXIDINE 0.12% ORAL RINSE 60 ML BOTTLE SWISH/SPIT SCH ×2 (10:04→22:02)
[2018-03-01] MEDS: DOCUSATE SODIUM 100 MG CAPSULE PO SCH ×2 (10:04→22:01)
[2018-03-01] MEDS: TAMSULOSIN 0.4 MG CAPSULE PO SCH (10:04)
[2018-03-01] MEDS: ASPIRIN EC 325 MG TABLET PO SCH (10:04)
[2018-03-01] MEDS: AMIODARONE 200 MG TABLET PO SCH ×2 (10:04→22:01)
[2018-03-01] MEDS: FINASTERIDE 5 MG TABLET PO SCH (10:04)
[2018-03-01] MEDS: FUROSEMIDE 40 MG TABLET PO SCH (10:05)
[2018-03-01] MEDS: PANTOPRAZOLE 40 MG VIAL IV SCH (10:05)
[2018-03-01] MEDS: CETIRIZINE 10 MG TABLET PO SCH (10:05)
[2018-03-01] MEDS: DOXYCYCLINE HYCLATE 100 MG CAPSULE PO SCH ×2 (10:05→22:00)
[2018-03-01] MEDS: BISACODYL 5 MG TABLET PO SCH (10:05)
[2018-03-01] MEDS: METOPROLOL TARTRATE 25 MG TABLET PO SCH ×2 (10:09→22:01)
[2018-03-01] MEDS: ZINC OXIDE PASTE 113 GM TUBE TOP SCH ×2 (14:23→22:01)
[2018-03-01] MEDS: diphenhydrAMINE CAP 50 MG CAPSULE PO PRN (22:01)
[2018-03-01] MEDS: ATORVASTATIN 40 MG TABLET PO SCH (22:01)
[2018-03-01] MEDS: HALOPERIDOL 5 MG/ML AMP IM SCH (22:01)
[2018-03-02] MEDS: CETIRIZINE 10 MG TABLET PO SCH (09:04)
[2018-03-02] MEDS: TAMSULOSIN 0.4 MG CAPSULE PO SCH (09:04)
[2018-03-02] MEDS: FINASTERIDE 5 MG TABLET PO SCH (09:05)
[2018-03-02] MEDS: BISACODYL 5 MG TABLET PO SCH (09:05)
[2018-03-02] MEDS: FUROSEMIDE 40 MG TABLET PO SCH (09:06)
[2018-03-02] MEDS: AMIODARONE 200 MG TABLET PO SCH ×2 (09:06→21:53)
[2018-03-02] MEDS: ASPIRIN EC 325 MG TABLET PO SCH (09:06)
[2018-03-02] MEDS: METOPROLOL TARTRATE 25 MG TABLET PO SCH ×2 (09:08→21:52)
[2018-03-02] MEDS: DOCUSATE SODIUM 100 MG CAPSULE PO SCH ×2 (09:08→21:52)
[2018-03-02] MEDS: ZINC OXIDE PASTE 113 GM TUBE TOP SCH ×2 (09:08→21:53)
[2018-03-02] MEDS: PANTOPRAZOLE 40 MG VIAL IV SCH (09:11)
[2018-03-02] MEDS: CHLORHEXIDINE 0.12% ORAL RINSE 60 ML BOTTLE SWISH/SPIT SCH ×2 (12:10→21:53)
[2018-03-02] MEDS: HALOPERIDOL 5 MG/ML AMP IM SCH (21:52)
[2018-03-02] MEDS: diphenhydrAMINE CAP 50 MG CAPSULE PO PRN (21:53)
[2018-03-02] MEDS: ATORVASTATIN 40 MG TABLET PO SCH (21:53)
[2018-03-03] MEDS: CETIRIZINE 10 MG TABLET PO SCH (08:43)
[2018-03-03] MEDS: ASPIRIN EC 325 MG TABLET PO SCH (08:43)
[2018-03-03] MEDS: DOCUSATE SODIUM 100 MG CAPSULE PO SCH ×2 (08:43→20:50)
[2018-03-03] MEDS: METOPROLOL TARTRATE 25 MG TABLET PO SCH ×2 (08:43→20:50)
[2018-03-03] MEDS: TAMSULOSIN 0.4 MG CAPSULE PO SCH (08:43)
[2018-03-03] MEDS: BISACODYL 5 MG TABLET PO SCH (08:43)
[2018-03-03] MEDS: FUROSEMIDE 40 MG TABLET PO SCH (08:43)
[2018-03-03] MEDS: AMIODARONE 200 MG TABLET PO SCH ×2 (08:43→20:51)
[2018-03-03] MEDS: FINASTERIDE 5 MG TABLET PO SCH (08:43)
[2018-03-03] MEDS: PANTOPRAZOLE 40 MG VIAL IV SCH (08:44)
[2018-03-03] MEDS: CHLORHEXIDINE 0.12% ORAL RINSE 60 ML BOTTLE SWISH/SPIT SCH ×2 (08:46→20:58)
[2018-03-03] MEDS: ZINC OXIDE PASTE 113 GM TUBE TOP SCH ×2 (08:46→20:59)
[2018-03-03] MEDS: HALOPERIDOL 5 MG/ML AMP IM SCH (20:51)
[2018-03-03] MEDS: ATORVASTATIN 40 MG TABLET PO SCH (20:51)
[2018-03-04 02:43] LABS: Basophils % 0.3 % (0.0-0.8); Eosinophils # 0.6 10*3/uL (0.0-0.87); Eosinophils % 6.6 % (0.00-10.9); Hematocrit 29.5 VOL% (42.0-52.0); Hemoglobin 9.4 GM/DL (14.0-18.0); Immature Granulocytes % 0.6 %; Immature Granulocytes Absolute 0.06 #; Lymphocytes # 1.3 10*3/uL (1.4-4.0); Lymphocytes % 12.9 % (21.2-54.2); Mean Corpuscular HGB Conc 31.9 GM/DL (32-36); Mean Corpuscular Hemoglobin 29 PG (27-34); Mean Corpuscular Volume 90.2 FL (87-102); Mean Platelet Volume 9.9 FL (9.6-12.0); Monocytes # 0.8 10*3/uL (0.11-0.8); Monocytes % 8.4 % (1.7-12.7); Neutrophils # 6.9 10*3/uL (1.4-7.4); Neutrophils % 71.2 % (38.7-73.9); Platelet Count 302 T/CUMM (130-400); Red Blood Count 3.27 MC/CUMM (3.8-5.5); Red Cell Distribution Width 13.5 % (9.3-17.3); White Blood Count 9.7 T/CUMM (4-12)
[2018-03-04 02:57] LABS: Calcium 8.3 MG/DL (8.5-10.1); Osmolality,Calculated 286.7 MOS/KG (273-304); Potassium 3.7 MMOL/L (3.5-5.1)
[2018-03-04] MEDS: MAGNESIUM SULF RIDER 4 GM in PREMIX 1 EACH IV PRN (06:22)
[2018-03-04] MEDS: PANTOPRAZOLE 40 MG VIAL IV SCH (09:33)
[2018-03-04] MEDS: AMIODARONE 200 MG TABLET PO SCH (09:33)
[2018-03-04] MEDS: CETIRIZINE 10 MG TABLET PO SCH (09:33)
[2018-03-04] MEDS: FUROSEMIDE 40 MG TABLET PO SCH (09:33)
[2018-03-04] MEDS: ASPIRIN EC 325 MG TABLET PO SCH (09:34)
[2018-03-04] MEDS: FINASTERIDE 5 MG TABLET PO SCH (09:34)
[2018-03-04] MEDS: DOCUSATE SODIUM 100 MG CAPSULE PO SCH (09:34)
[2018-03-04] MEDS: METOPROLOL TARTRATE 25 MG TABLET PO SCH (09:34)
[2018-03-04] MEDS: TAMSULOSIN 0.4 MG CAPSULE PO SCH (09:34)
[2018-03-04] MEDS: BISACODYL 5 MG TABLET PO SCH (09:34)
[2018-03-04] MEDS: ZINC OXIDE PASTE 113 GM TUBE TOP SCH (09:35)
[2018-03-04] MEDS: CHLORHEXIDINE 0.12% ORAL RINSE 60 ML BOTTLE SWISH/SPIT SCH (09:35)
[2018-03-04 11:47] VITALS: BP 138/66
== END 2018-03-04 13:45 | disposition swing bed (61) | DRG 236 ==
LOC: N.TELES 02-17 13:48 → N.CVR 02-18 07:26 → N.ICU 02-19 14:18 → N.TELES 02-20 11:43
PROVIDERS: ADMIT Thoracic Surgery (Cardiothoracic Vascular Surgery); ATTEND Thoracic Surgery (Cardiothoracic Vascular Surgery)